=== PATIENT | male | born 1970 | race Caucasian/White ===

== ENCOUNTER 2016-04-03 10:27 | Outpatient (CLI) ==
[2015-08-10 17:55] VITALS: BMI 28.8
--- NOTE | 2016-04-04 08:17 | MRI ---
EXAM: Lumbar spine MRI without contrast. HISTORY: L4-5 disc bulge. Low back pain and left radiculopathy. COMPARISON: Lumbar spine MRI 04/11/2015. TECHNIQUE: Multiplanar, multisequence MR images were acquired of the lumbar spine without contrast. FINDINGS: Five lumbar-type vertebra are present. There is mild straightening of the usual lumbar l ordosis. The lumbar vertebra are normal in height and intrinsic bone marrow signal. There is mild chronic loss of height of the T11 vertebra and mild chronic flattening of the superior endplate of T 12 with minor chronic loss of height of the vertebra. There is endplate irregularity with small chr onic Schmorl's nodes at T11-12 and T12-L1. There is disc space narrowing disc desiccation at T11-12 . At L5-S1, there is osteophytosis with mild to moderate disc space narrowing that is greatest post eriorly, mild endplate irregularity with small chronic Schmorl's nodes, disc desiccation and mild br ight STIR signal edema along the left posterior and left lateral endplates and adjacent intervertebr al disc. This is suggestive of increased stress or motion at this level. Conus medullaris ends at L1 and has normal signal intensity. The visualized liver, spleen and kidneys are unremarkable. There are no paravertebral masses. T12-L1: The intervertebral disc is normal. A benign intraosseous hemangioma is present at T12. L1-2: The intervertebral disc is normal. L2-3: The intervertebral disc is normal. L3-4: The intervertebral disc is normal. There is mild bilateral facet arthropathy without foramin al stenosis or central canal stenosis. L4-5: There is a mild disc bulge with a small central and left posterolateral disc protrusion that effaces the ventral thecal sac. Mild bilateral hypertrophic facet arthropathy and ligamentum flavum hypertrophy is present. This causes mild left and mild to moderate right neural foraminal stenosis . There is no central canal stenosis. L5-S1: There is a diffuse disc bulge that is asymmetric to the left with a left posterolateral/late ral disc protrusion that effaces the left lateral recess and left neural foramen with encroachment o n the left L5 nerve. Mild right and mild to moderate left hypertrophic facet arthropathy which caus es mild right neural foraminal stenosis and severe left neural foraminal stenosis with encroachment on the left L5 nerve. This is not significantly changed compared to 04/11/2015. IMPRESSION: 1. Mild lumbar degenerative spondylosis without central canal stenosis. 2. Mild discogenic disease L5-S1 with left posterolateral/lateral disc protrusion and severe left n eural foraminal stenosis with encroachment on the left L5 nerve unchanged from previously. 3. Stable mild to moderate right L4-5 neural foraminal stenosis.
== END 2016-04-03 10:28 | disposition home or self-care (01) ==
LOC: RAD 10:27
PROVIDERS: ATTEND Physician Assistant
DX: M51.26 Other intervertebral disc displacement, lumbar region (principal); M54.5 Low back pain; M54.16 Radiculopathy, lumbar region